=== PATIENT | female | born 1990 | race Caucasian/White ===

== ENCOUNTER 2016-12-09 08:00 | Day surgery (SDC) | payer OTHER ==
--- NOTE | ~2016-12-09 | OP ---
Record Of Operation [facility] [address] [place]. [address] NAME: MANN COLE : 89 STATUS : [facility]#: [id number] AGE: 25 ADM/REG DATE : 12/09/16 MR#: [id number] REPORT SERV DATE: 12/09/16 DICTATED BY: MO BANEGAS III DATE: 12/09/16 REPORT STATUS : Draft TRANSCRIBED BY: MODL DATE: 12/09/16 DATE OF PROCEDURE: 12/09/2016 PREOPERATIVE DIAGNOSIS: Painful bladder. POSTOPERATIVE DIAGNOSES: 1. Normal-appearing urothelium. 2. Petechiae after hydrodistention. PROCEDURE: Cystoscopy. ANESTHESIA: General. SPECIMENS: None. DRAIN: None. BLOOD LOSS: None. INDICATION: Ms. Cole is a 25-year-old white female with a history of intraabdominal endometriosis. She has chronic abdominal pain and also at times, has bladder pressure and pain. 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 Consent is obtained for cystoscopy and possible bladder biopsy. DESCRIPTION OF PROCEDURE: After consent was obtained and the patient was identified, she was taken to the OR and put to sleep. She was positioned in the low lithotomy position and prepped and draped in the usual fashion. A 22-[place] cystoscope was inserted into the bladder. The urothelium appeared normal. Images were obtained. I did fill the bladder to capacity. The volume was 750 mL. There were some minimal urothelial changes after filling. The bladder was then drained. The scope was removed. The patient was awakened and taken to recovery in stable condition. PH/RYLAND Mo Banegas III, M.D. / [id number] CC: Mo Banegas III, M.D. NO PCP
[~2016-12-09 08:00] MED LIST: ALEVE220 MG PO; JOLESSA PO; LINZESS 290 M290 MCG PO; MAGOX4 PO; MYRBETRIQ25 MG PO; PROTONIX PO; TORATAB PO; VITAMIN B-121000 MC1 SL; ZOFRAN ODT4 MG PO; [UNRECOGNIZED DRUG - OTHER] PO; [UNRECOGNIZED DRUG - OTHER] PO; [UNRECOGNIZED DRUG - OTHER] PO
== END 2016-12-09 13:38 | disposition home or self-care (01) ==
LOC: SDC 08:00
PROVIDERS: Urology
PROC: 0TJB8ZZ Inspection of Bladder, Via Natural or Artificial Opening Endoscopic (ICD-10-PCS; principal; 2016-12-09 09:45)
DX: N32.89 Other specified disorders of bladder (principal); F17.210 Nicotine dependence, cigarettes, uncomplicated; R23.3 Spontaneous ecchymoses; Z88.5 Allergy status to narcotic agent; Z79.899 Other long term (current) drug therapy; Z90.49 Acquired absence of other specified parts of digestive tract; Z90.89 Acquired absence of other organs; Z98.890 Other specified postprocedural states
CPT/HCPCS: 84703; A9270-GY; J1170; J2250; J2405; J3010